=== PATIENT | female | born 1950 | race Caucasian/White ===

== ENCOUNTER 2018-05-30 05:23 | Inpatient (IN) | payer OTHER, MEDICARE ==
[~2018-05-30] VITALS: Ht 152.4 cm; Wt 63.0 kg
[~2018-05-30 05:23] MED LIST: CENTRUM SILVER1 EAC4 PO; CRESTOR20 MG PO; METOPROLOL SUCC50 MG PO; VITAMIN D1000 UNI1 PO; YUVAFEM10 MCG VAG; ZESTORETIC 20-1 EAC3 PO
[2018-05-30 08:10] VITALS: BP 153/66
[2018-05-30 08:14] LABS: CALCIUM 9.7 mg/dL (8.5-10.1); CREATININE 0.8 mg/dL (0.6-1.0); POTASSIUM 3.2 mmol/L (3.5-5.1)
--- NOTE | 2018-05-30 11:21 | O ---
[facility] [place] [address] OPERATIVE REPORT Name: JAYESH FERNANDEZ Room #: 150-4 [facility] M.R.#: [id number] Admission: 05/30/18 Attend Phys: Roberto Meadows MD Discharge: Date of : 48 Report #: [id number] THIS REPORT FOR: //name// CC: Roberto Meadows Malgorzata Rehmankatherine DATE OF SERVICE: 05/30/2018 PREOPERATIVE DIAGNOSIS: Lumbar spinal stenosis with radiculopathy. POSTOPERATIVE DIAGNOSIS: Lumbar spinal stenosis with radiculopathy. PROCEDURE: Decompressive laminectomy and foraminotomy, L4-L5 bilateral. SURGEON: Roberto Meadows MD INDICATIONS: This slender, fit and active 67-year-old female complains of severe progressive back and bilateral leg pain. She has symptoms of pain, numbness and weakness in both lower extremities in equal severity. She has tried conservative measures without benefit. Clinical exam and imaging study including MRI reveals rather severe spinal stenosis at the L4-L5 level. This is primarily the result of hypertrophic facet changes and hypertrophic ligamentum. There is also some disk bulging at L4-L5, more toward the right than the left. Given these findings, we have discussed treatment options and elected to go ahead with surgical decompression. I have discussed with her the fact that there is a combination of both facet degeneration and disk degeneration and therefore segmental fusion might be considered. She and her seemed to understand this well and prefer to avoid any instrumented fusion. Instead, they prefer to go ahead with decompression alone. I think this is a reasonable option given her clinical and radiographic findings. DESCRIPTION OF PROCEDURE: The patient was taken to the operating room where she was placed under general anesthesia. Prophylactic intravenous antibiotics were administered. She was turned to the prone position. The low back was meticulously prepped and draped and the appropriate level confirmed with C-arm. A skin incision was made overlying the L4-L5 interspace. This was carried through the midline and fascia and the spinous process of L4 and L5 were removed. C-arm confirmed I was at the appropriate level. The dissection was then extended out to include the lamina bilaterally at both L4 and L5. The canal was quite narrow at the L4-L5 interspace due to a combination of marked facet joint hypertrophy and spurring as well as some degenerative facet cyst formation and scarring as well as hypertrophy of the ligamentum. With some difficulty the canal was opened up in a satisfactory fashion. This was extended to a point below the lamina of L5 and above the lamina of L4. This was confirmed with C-arm views, confirming I was well above and below the area of significant stenosis. The lateral gutters were opened by undercutting the facet [address] [address] OPERATIVE REPORT Name: JAYESH FERNANDEZ Sofi Room #: 150-4 [facility] M.R.#: [id number] Admission: 05/30/18 Attend Phys: Roberto Meadosw MD Discharge: Date of : 48 Report #: [id number] joints and removing hypertrophic spurring. This resulted in satisfactory improvement in the canal without evidence of ongoing stenosis. As the MRI did show evidence of some disk bulging, particularly on the right side, this area was further explored. The disk was found to be bulging mildly, but without significant disk herniation. I did not feel that violation of the disk would result in any significant additional improvement and might result in more instability. The disk was left intact. The nerve root was traced out laterally through the foramina that seemed to be freed up nicely without any significant ongoing impingement. The opposite left side was less severely involved and no further debridement there seemed necessary. At this point, the entire wound was copiously irrigated. Good hemostasis was confirmed. A small sheet of Gelfoam soaked in thrombin was left over the exposed dura. The muscle layer was closed with multiple #1 Vicryl sutures. The fascia was also closed with #1 Vicryl and reinforced with 0 Monocryl. The subcutaneous tissues were closed with 0 Monocryl. The skin was closed with skin seamus. A sterile dressing was applied. The patient was awakened and returned to recovery room in good condition. <ELECTRONICALLY SIGNED> By: Roberto Meadows MD 05/30/18 1121 [id number] Roberto Meadows MD /nt
[2018-05-30 13:57] VITALS: BP 120/40
--- NOTE | 2018-05-30 15:07 | NUR ---
67 YO FEMALE TRANSFERED FROM PACU, A&OX4, BANDAGE ON BACK APPROX 4X4 WITH SMALL AMT OF SEROUS SANG. DRAINAGE, DENIES PAIN VSS, TOLERATING CL LIQUIDS. IV FLUIDS STARTED ORDERED.
[2018-05-30 16:29] VITALS: BP 119/51
[2018-05-30 19:48] VITALS: BP 110/37
[2018-05-31 04:05] VITALS: BP 129/30
--- NOTE | 2018-05-31 05:57 | NUR ---
ALERT, ORIENTED X 4. UP WITH X 1 ASSIST TO BSC, OTHERWISE ON BEDREST THRU NIGHT. TOLERATING PO, DRINKING WATER = IVF DCD. INCISIONAL PAIN RELIEF WELL CONTROLLED WITH PO PRN MED. ANTICIPATING DISCHARGE HOME TODAY.
--- NOTE | 2018-05-31 07:25 | NUR ---
ASSUMED CARE OF PT AT 0700. ASSESSMENT COMPLETED. A&O,X4. C/O LOWER BACK PAIN 06/26 POST OP LUMBAR LAMINECTOMY, PAIN MEDS GIVEN ORDERED. DENIES SOA OR CHEST PAIN. ROOM AIR, CLEAR LUNG SOUNDS. REGULAR HEART SOUNDS, NO EDEMA. ACTIVE BOWEL SOUNDS, LBM YESTERDAY 05/30. NO PROBLEMS VOIDING. SKIN INTACT. DRESSING IN PLACE LOWER BACK INCISION WITH JAKY, DRIED SEROUSANGIOUS DRAINAGE NOTED. SCD'S IN PLACE. PLAN TO WORK WITH P.T. THERAPY AND POSSIBLE D/C LATER. WILL CONTINUE TO MONITOR.
[2018-05-31 07:40] VITALS: BP 119/44
--- NOTE | 2018-05-31 08:16 | D ---
[facility] [place] [address] DISCHARGE SUMMARY Name: JAYESH FERNANDEZ Room #: 424-P [facility] [place] M.R.#: [id number] Admission: 05/30/18 Attend Phys: Roberto Meadows MD Discharge: Date of : 48 Report #: [id number] THIS REPORT FOR: //name// CC: Roberto Servin DATE OF SERVICE: 05/31/2018 FINAL DIAGNOSES: Lumbar spinal stenosis with bilateral radiculopathy. OPERATIONS AND PROCEDURES: Decompressive lumbar laminectomy for spinal stenosis, L4 and L5 levels. HISTORY OF PRESENT ILLNESS: This active, independent 67-year-old female complains of progressive bilateral leg pain, numbness, and weakness. Clinical exam and MRI study confirms rather severe spinal stenosis at L4-L5 as a result of degenerative facet hypertrophy, bony spurring, ligamentum hypertrophy, and disk bulging. We elected to go ahead with surgical decompression. HOSPITAL COURSE: The patient was admitted and taken to the operating room on 05/30/2018. She underwent a 2-level lumbar laminectomy for decompression of spinal stenosis at the L4 and L5 level. She tolerated this well. Postoperatively, her course was unremarkable. She was able to resume a regular diet. She was able to manage oral pain medication and did nicely. She was able to begin activity and ambulation independently and seems safe. Her leg pain and numbness are clearly improved, her back pain is moderate and tolerable. She is anxious to go ahead with hospital discharge today. She feels she can manage at home with family assistance. DISCHARGE MEDICATIONS: Include metoprolol 50 mg daily, estradiol 10 mcg twice weekly, lisinopril/hydrochlorothiazide 20/12.5 once daily, Crestor 20 mg daily, vitamin D 1000 units daily, multivitamin once daily, hydrocodone 10/325 one q.6 hours p.r.n. for pain. She is instructed to call or return if there are any problems or questions. We will otherwise see her one week for routine followup and in 2 weeks for suture removal. <ELECTRONICALLY SIGNED> By: Roberto Meadows MD 05/31/18 [id number] Roberto Meadows MD /nt
[2018-05-31 08:32] VITALS: BP 119/44
--- NOTE | 2018-05-31 09:08 | NUR ---
ORDERS RECEIVED FOR EVAL AND TREAT. SPOKE TO Pt WHO STATES SHE HAS ALREADY BEEN UP TO THE BATHROOM WITHOUT DIFFICULTY WITH NO PAIN IN LEGS. STATES SHE FEELS SAFE FOR HOME AND DECLINING FORMAL P.T. EVAL. Pt TO DISCHARGE TO HOME TODAY
--- NOTE | 2018-05-31 11:54 | NUR ---
NEW DISCHARGE ORDERS. PHYSICIAN NOTIFIED ABOUT SATURATED DRESSING, INSTRUCTED TO CHANGE TO [facility]. INCISION WELL APPROXIMATED WITH JAKY, NO DRAINAGE OR BLEEDING NOTED. PT TOLERATED DRESSING CHANGE. DISCHARGE INFORMATION DISCUSSED WITH PT AND S.O. AT BEDSIDE. SCRIPTS AND CARENOTES GIVEN. STATE NO QUESTIONS OR CONCERNS. PT DRESSED IN PERSONAL CLOTHES AND HAD ALL BELONGINGS. PT LEFT THE UNIT VIA WHEELCHAIR IN STABLE CONDITION AT 11:53. IV REMOVED PRIOR TO LEAVING.
--- NOTE | 2018-05-31 14:53 | NUR ---
I have reviewed and concur with student documentation.
== END 2018-05-31 12:00 | disposition home or self-care (01) | DRG 517 ==
LOC: OR 05:23 → TBA 05:24 → OR 12:59 → 4E 13:16 → ENTRNSPT 05-31 11:46 → EDTRNSPTSTS 05-31 11:53 → 4E 05-31 12:00
PROVIDERS: ADMIT Orthopaedic Surgery
PROC: 01NB0ZZ Release Lumbar Nerve, Open Approach (ICD-10-PCS; principal; 2018-05-30)
DX: M48.061 Spinal stenosis, lumbar region without neurogenic claudication (principal); M54.16 Radiculopathy, lumbar region; Z79.899 Other long term (current) drug therapy
CPT/HCPCS: 10783; 50010; 50101; 50402; 50704; 50850; 51412; 56525; 62110; 62900; 70005